=== PATIENT | female | born 1985 | race Two or more races ===

== ENCOUNTER 2019-07-01 06:27 | Emergency (ER) | payer OTHER ==
[2019-07-01 07:10] VITALS: BP 124/81; PULSE 73; TEMP 98.1; BMI 29.2
[2019-07-01] MEDS ORDERED: FAMOTIDINE 20 MG/50 ML IVPB 20 MG/50 ML MG IVPB ONE ×2 (07:38→08:28)
[2019-07-01] MEDS ORDERED: ONDANSETRON 4 MG/2 ML VIAL IVPUSH ONE (07:38)
[2019-07-01] MEDS ORDERED: SODIUM CHLORIDE 1,000 ML IV STA (08:09)
--- NOTE | 2019-07-01 08:09 | PDOC ---
History of Present Illness - General Chief Complaint: Pain Stated Complaint: ABD PAIN Time Seen by Provider: 07/01/19 07:31 History Source: Patient Exam Limitations: No Limitations - History of Present Illness Initial Comments: 07/01/19 08:04 34 yo F w/ a h/o gallstones comes in c/o exacerbation of her gallstones pain since 4am today. She c/o RUQ pain which radiates to the back. She is supposed to have a cholecystectomy done on Friday at [place] but could not take the pain, (+)nausea, no vomiting, no diarrhea, no urinary/vaginal symptoms, no fever/chills. She has not taken any pain meds. Past History - Past Medical History Allergies/Adverse Reactions: Allergies Allergy/AdvReac Type Severity Reaction Status Date / Time shellfish derived Allergy Verified 07/01/19 07:11 Home Medications: Ambulatory Orders NK [No Known Home Medication] 07/01/19 COPD: No - Suicide/Smoking/Psychosocial Hx Smoking History: Unknown if ever smoked Review of Systems - Review of Systems Able to Perform ROS?: Yes Constitutional: No: Chills, Fever, Malaise, Night Sweats HEENTM: No: Eye Pain, Recent change in vision, Throat Pain Respiratory: No: Cough, Shortness of Breath Cardiac (ROS): No: Chest Pain, Palpitations, Chest Tightness ABD/GI: Yes: Nausea, Abdominal cramping. No: Diarrhea, Vomiting : No: Dysuria, Hematuria Musculoskeletal: No: Back Pain Integumentary: No: Rash Neurological: No: Headache, Numbness, Dizziness Psychiatric: Yes: Change in Appetite Endocrine: No: Unexplained Weight Loss *Physical Exam - Vital Signs Last Vital Signs Temp Pulse Resp BP Pulse Ox 98.1 F 73 18 124/81 98 07/01/19 07:08 07/01/19 07:08 07/01/19 07:08 07/01/19 07:08 07/01/19 07:08 - Physical Exam General Appearance: Yes: Nourished. No: Apparent Distress HEENT: positive: DESEAN, Normal ENT Inspection, Normal Voice. negative: Pale Conjunctivae, Scleral Icterus (R), Scleral Icterus (L) Neck: positive: Supple. negative: Decreased range of motion, Tender midline Respiratory/Chest: positive: Lungs Clear, Normal Breath Sounds. negative: Respiratory Distress, Accessory Muscle Use Cardiovascular: positive: Regular Rhythm, Regular Rate Gastrointestinal/Abdominal: positive: Normal Bowel Sounds, Tender (RUQ tenderness with (+)ricketts's sign. NO CVA tenderness), Soft Musculoskeletal: positive: Normal Inspection. negative: CVA Tenderness, Decreased Range of Motion Extremity: positive: Normal Capillary Refill, Normal Inspection, Normal Range of Motion. negative: Tender, Pedal Edema Integumentary: positive: Normal Color, Dry. negative: Jaundice, Rash Neurologic: positive: Fully Oriented, Alert, Normal Mood/Affect ED Treatment Course - LABORATORY CBC & Chemistry Diagram: 07/01/19 08:18 07/01/19 08:18 - RADIOLOGY Radiology Studies Ordered: Category Date Time Status GALLBLADDER US [US] Stat Ultrasound 07/01/19 07:35 Ordered Medical Decision Making - Medical Decision Making 07/01/19 08:08 34 yo F w/ RUQ pain radiating to the back R/O cholecystitis/pancreatitis. WIll line and lab, give IV fluids, zofran, pepcid, do a TVS and reassess 07/01/19 09:55 Pt declines pain meds at this time, says that she feels better. 07/01/19 11:05 Pt says that she feels much better, no pain, no nausea, she asked to take the IV out. Lock removed. She understands that if she needs it again, we will have to stick her again. 07/01/19 12:15 Sono without signs of cholecystitis, pt feeling much better, asking to get discharged. She will go home and follw up with her surgeon Pt is non toxic appearing in NAD Return for worsening/concerning symptoms. Case discussed with Dr. Colon who agrees with assessment and plan *DC/Admit/Observation/Transfer Diagnosis at time of Disposition: Biliary colic - Discharge Dispostion Disposition: HOME - Referrals Referrals: Ronnie Almonte MD [Primary Care Provider] - - Patient Instructions Additional Instructions: Do NOT EAT ANYTHING GREASY/FATTY, IT MAY WORSEN YOUR PAIN. RETURN FOR WORSENING/ CONCERNING SYMPTOMS. - Post Discharge Activity
[2019-07-01] MEDS ORDERED: ONDANSETRON 4 MG/2 ML VIAL ONE (08:27)
[2019-07-01 08:48] LABS: BASO % 0.8 % (0-2.0); HEMATOCRIT 34.5 % (32.4-45.2); HEMOGLOBIN 10.8 GM/dL (10.7-15.3); LYMPH % 44.8 % (8-40); MCH 21.5 pg (25.7-33.7); MCHC 31.3 g/dl (32.0-36.0); MEAN CELL VOLUME 68.8 fl (80-96); MONO % 7.7 % (3.8-10.2); NEUT % 42.7 % (42.8-82.8); PLATELET COUNT 435 K/MM3 (134-434); RBC 5.01 M/mm3 (3.60-5.2); RDW 16.7 % (11.6-15.6); WHITE BLOOD COUNT 3.5 K/mm3 (4.0-10.0)
[2019-07-01 08:54] LABS: BILIRUBIN,TOTAL 0.3 mg/dL (0.2-1); BLOOD UREA NITROGEN 11.8 mg/dL (7-18); CALCIUM 9.2 mg/dL (8.5-10.1); CREATININE 0.6 mg/dL (0.55-1.3); MAGNESIUM 2.3 mg/dL (1.8-2.4); PHOSPHOROUS 3.7 mg/dL (2.5-4.9); POTASSIUM 4.4 mmol/L (3.5-5.1); TOT PROT 8.2 g/dl (6.4-8.2)
[2019-07-01 09:20] LABS: PH,URINE 5.5 (5.0-8.0); URINE APPEARANCE CLEAR; URINE BILIRUBIN NEGATIVE (NEGATIVE); URINE COLOR YELLOW; URINE GLUCOSE (UA) NEGATIVE (NEGATIVE); URINE KETONE NEGATIVE (NEGATIVE); URINE LEUK ESTERASE NEGATIVE (NEGATIVE); URINE NITRITE NEGATIVE (NEGATIVE); URINE PROTEIN NEGATIVE (NEGATIVE); URINE UROBILINOGEN 0.2 mg/dL (0.2-1.0)
[2019-07-01 09:23] LABS: INR 1.03 (0.83-1.09); PROTHROMBIN TIME (PATIENT) 12.1 SEC (9.7-13.0)
--- NOTE | 2019-07-01 09:34 | PDOC ---
*Physical Exam - Vital Signs Last Vital Signs Temp Pulse Resp BP Pulse Ox 98.1 F 73 18 124/81 98 07/01/19 07:08 07/01/19 07:08 07/01/19 07:08 07/01/19 07:08 07/01/19 07:08 - Physical Exam Comments: 07/01/19 09:32 vss, negative alert, dry mucosa no jaundice/pallor RUQ ttp with guarding. otherwise soft/nd. ED Treatment Course - LABORATORY CBC & Chemistry Diagram: 07/01/19 08:18 07/01/19 08:18 - ADDITIONAL ORDERS Additional order review: Laboratory Results 07/01/19 07/01/19 07/01/19 08:18 08:18 08:18 PT with INR 12.10 INR 1.03 Sodium Potassium Chloride Carbon Dioxide Anion Gap BUN Creatinine Est GFR (CKD-EPI)AfAm Est GFR (CKD-EPI)NonAf Random Glucose Calcium Phosphorus Magnesium Total Bilirubin AST ALT Alkaline Phosphatase Total Protein Albumin Lipase Beta HCG, Quant Urine Color Yellow Urine Appearance Clear Urine pH 5.5 Ur Specific Whitney 1.027 Urine Protein Negative Urine Glucose (UA) Negative Urine Ketones Negative Urine Blood Negative Urine Nitrite Negative Urine Bilirubin Negative Urine Urobilinogen 0.2 Ur Leukocyte Esterase Negative Blood Type A POSITIVE Antibody Screen Negative 07/01/19 07/01/19 08:18 08:18 PT with INR INR Sodium 140 Potassium 4.4 Chloride 108 H Carbon Dioxide 27 Anion Gap 5 L BUN 11.8 Creatinine 0.6 Est GFR (CKD-EPI)AfAm 139.78 Est GFR (CKD-EPI)NonAf 120.61 Random Glucose 91 Calcium 9.2 Phosphorus 3.7 Magnesium 2.3 Total Bilirubin 0.3 AST 14 L ALT 18 Alkaline Phosphatase 98 Total Protein 8.2 Albumin 4.0 Lipase 105 Beta HCG, Quant < 1.0 Urine Color Urine Appearance Urine pH Ur Specific Whitney Urine Protein Urine Glucose (UA) Urine Ketones Urine Blood Urine Nitrite Urine Bilirubin Urine Urobilinogen Ur Leukocyte Esterase Blood Type Antibody Screen 07/01/19 08:18 RBC 5.01 MCV 68.8 L MCHC 31.3 L RDW 16.7 H MPV 9.0 Neutrophils % 42.7 L Lymphocytes % 44.8 H Monocytes % 7.7 Eosinophils % 4.0 Basophils % 0.8 - Medications Given in the ED: ED Medications Discontinued Medications Generic Name Dose Route Start Last Admin Trade Name Catarina PRN Reason Stop Dose Admin Famotidine/Sodium Chloride 20 mg in 50 mls @ 100 mls/hr 07/01/19 07:38 08:42 Pepcid 20 Mg Premixed Ivpb - IVPB 07/01/19 08:07 100 mls/hr ONCE ONE Administration Sodium Chloride 1,000 mls @ 1,000 mls/hr 07/01/19 08:09 07/01/19 08:42 Normal Saline - IV 07/01/19 09:08 1,000 mls/hr ASDIR STA Administration Ondansetron HCl 4 mg 07/01/19 07:38 07/01/19 08:42 Zofran Injection IVPUSH 07/01/19 07:39 4 mg ONCE ONE Administration Medical Decision Making - Medical Decision Making 07/01/19 09:32 Patient seen and evaluated with the nurse practitioner. I agree with the overall evaluation, assessment, and management with the following summary of visit: 34-year-old female with history of known cholelithiasis scheduled for elective surgery next week at [place] presents now with acute exacerbation of her biliary colic since last night. Afebrile and not septic appearing Tenderness in the right upper quadrant 34-year-old female with known cholelithiasis presents with biliary colic, rule out cholecystitis or obstructive pathology. Labs, urinalysis Right upper quadrant ultrasound Pain control Reassess. If symptoms persist or evidence of obstruction or infection, consider transfer to her surgeon at [place] or admission for care here per patient preference. *DC/Admit/Observation/Transfer Diagnosis at time of Disposition: Biliary colic - Referrals Referrals: Ronnie Almonte MD [Primary Care Provider] - - Patient Instructions - Post Discharge Activity
[2019-07-01 11:15] LABS: ANISOCYTOSIS 2+; MACROCYTOSIS 0; OVALOCYTE 1+; PLATELET ESTIMATE NORMAL
== END 2019-07-01 12:40 | disposition home or self-care (01) ==
LOC: JER 06:27
PROC: 3E033GC Introduction of Other Therapeutic Substance into Peripheral Vein, Percutaneous Approach (ICD-10-PCS; principal; 2019-07-01)
PROC: 3E0337Z Introduction of Electrolytic and Water Balance Substance into Peripheral Vein, Percutaneous Approach (ICD-10-PCS; 2019-07-01)
DX: K80.50 Calculus of bile duct without cholangitis or cholecystitis without obstruction (principal)
CPT/HCPCS: 36415; 76705-TC; 80053; 81003; 83690; 83735; 84100; 84702; 85025; 85610; 86850; 86900; 86901; 87086; 99283-25; J7030

== ENCOUNTER 2019-07-02 03:36 | Emergency (ER) | payer OTHER ==
[2019-07-02 03:53] VITALS: TEMP 98.2; BMI 29.3
--- NOTE | 2019-07-02 04:03 | PDOC ---
History of Present Illness - General Chief Complaint: Pain Stated Complaint: PAIN Time Seen by Provider: 07/02/19 03:55 - History of Present Illness Initial Comments: 07/02/19 04:11 34 year woman with a history of gallstones, scheduled for cholecystectomy on Friday at [facility]. She has had this pain for 3 months and was diagnosed with cholelithiasis on 06/14/19 at [facility]. She was seen in the ED yesterday, had negative labs and US and she was discharged with Naproxen and Tylenol. She reports that she took 2 Naproxen Past History - Past Medical History Allergies/Adverse Reactions: Allergies Allergy/AdvReac Type Severity Reaction Status Date / Time shellfish derived Allergy Verified 07/01/19 07:11 Home Medications: Ambulatory Orders Naproxen [Naprosyn -] 500 mg PO BID #28 tablet 07/02/19 COPD: No - Suicide/Smoking/Psychosocial Hx Smoking History: Never smoked Have you smoked in the past 12 months: No Information on smoking cessation initiated: No Hx Alcohol Use: No Drug/Substance Use Hx: No *Physical Exam - Vital Signs Last Vital Signs Temp Pulse Resp BP Pulse Ox 98.2 F 81 20 140/91 99 07/02/19 03:46 07/02/19 03:46 07/02/19 03:46 07/02/19 03:46 07/02/19 03:46 ED Treatment Course - LABORATORY CBC & Chemistry Diagram: 07/02/19 04:55 07/02/19 04:55 *DC/Admit/Observation/Transfer Diagnosis at time of Disposition: Biliary colic - Discharge Dispostion Disposition: HOME Condition at time of disposition: Stable Decision to Admit order: No - Prescriptions Prescriptions: Naproxen [Naprosyn -] 500 mg PO BID #28 tablet - Referrals - Patient Instructions Printed Discharge Instructions: DI for Gallstones Additional Instructions: You were seen in the ED for complaints of abdominal pain that is the same as your gallstone pain Your labwork was unremarkable and you got pain medications Please follow up with you Primary Doctor within 1 week. Take the pain medication that has been prescribed to her pharmacy Return to the ED if you experience worsening abdominal pain, nausea, vomiting, fever - Post Discharge Activity
[2019-07-02] MEDS: SODIUM CHLORIDE 1,000 ML IV SCH ×2 (04:17→04:57)
[2019-07-02] MEDS ORDERED: ONDANSETRON *ODT* 4 MG TABLET SL ONE (04:41)
[2019-07-02 05:10] LABS: BASO % 1.2 % (0-2.0); EOS % 3.3 % (0-4.5); HEMATOCRIT 34.4 % (32.4-45.2); HEMOGLOBIN 10.7 GM/dL (10.7-15.3); LYMPH % 38.6 % (8-40); MCH 21.5 pg (25.7-33.7); MCHC 31.1 g/dl (32.0-36.0); MEAN CELL VOLUME 69.1 fl (80-96); MEAN PLT VOLUME 8.8 fl (7.5-11.1); MONO % 6.5 % (3.8-10.2); NEUT % 50.4 % (42.8-82.8); PLATELET COUNT 433 K/MM3 (134-434); RBC 4.97 M/mm3 (3.60-5.2); RDW 16.9 % (11.6-15.6); WHITE BLOOD COUNT 4.7 K/mm3 (4.0-10.0)
[2019-07-02 05:27] LABS: ALBUMIN 4.1 g/dl (3.4-5.0); BILIRUBIN,TOTAL 0.2 mg/dL (0.2-1); BLOOD UREA NITROGEN 10.4 mg/dL (7-18); CALCIUM 9.1 mg/dL (8.5-10.1); CREATININE 0.7 mg/dL (0.55-1.3); POTASSIUM 4.1 mmol/L (3.5-5.1); TOT PROT 8.2 g/dl (6.4-8.2)
[2019-07-02] MEDS ORDERED: ONDANSETRON *ODT* 4 MG TABLET ONE (05:33)
--- NOTE | 2019-07-02 05:56 | PDOC ---
Attending Attestation - Resident Resident Name: EdnamagdiClau - ED Attending Attestation I have performed the following: I have examined & evaluated the patient, The case was reviewed & discussed with the resident, I agree w/resident's findings & plan, Exceptions are as noted - HPI HPI: 07/02/19 05:51 34 F presenting with RUQ pain. Pt was diagnosed with cholelithiasis recently and is scheduled for cholecystectomy next Friday. Pt was prescribed tylenol and naproxen for pain but has only been taking tylenol. Pt denies F/C. Endorses nausea without vomiting. Denies diarrhea. Denies lower abdominal pain. No flank pain. Pt states the pain is exactly the same as the pain she has been having. However, she does not want to have her surgery earlier, as she has a 6 month old at home that she needs to take care of. - Physicial Exam PE: 07/02/19 05:56 "GENERAL: Awake, alert, and fully oriented, in no acute distress. HEAD: No signs of trauma EYES: PERRLA, EOMI, sclera anicteric, conjunctiva clear ENT: Auricles normal inspection, hearing grossly normal, nares patent, oropharynx clear without exudates. Moist mucosa NECK: Nontender, no stepoffs, Normal ROM, supple, no lymphadenopathy, JVD, or masses LUNGS: Breath sounds equal, clear to auscultation bilaterally. No wheezes, and no crackles HEART: Regular rate and rhythm, normal S1 and S2, no murmurs, rubs or gallops ABDOMEN: + RUQ TTP, normoactive bowel sounds. No guarding, no rebound. No masses EXTREMITIES: Normal range of motion, no edema. No clubbing or cyanosis. No cords, erythema, or tenderness NEUROLOGICAL: Cranial nerves II through XII intact. 5/5 strength and sensation in all extremities, Normal speech, normal gait, normal cerebellar function SKIN: Warm, Dry, normal turgor, no rashes or lesions noted. - Medical Decision Making 07/02/19 05:57 34 F with RUQ pain. Known gallstones. Pt was seen here yesterday and had labs and US that was negative for cholecystitis. - Repeat labs - Pain control 07/02/19 06:02 Labs wnl Pt reassessed after pain meds, now feels much better. Tolerating PO with minimal pain Pt is well appearing, with normal vitals. Clinically stable for DC at this time. I discussed the physical exam findings, ancillary test results and final diagnoses with the patient. I answered all of the patient's questions. The patient was satisfied with the care received and felt comfortable with the discharge plan and treatment plan. The patient agrees to follow up with the primary care physician within 24-72 hours.
[2019-07-02 06:24] VITALS: BP 130/90; PULSE 90
== END 2019-07-02 06:24 | disposition home or self-care (01) ==
LOC: JER 03:36
DX: N12 Tubulo-interstitial nephritis, not specified as acute or chronic (principal)
CPT/HCPCS: 36415; 80053; 85025; 99282-25; J7030; Q0162

== ENCOUNTER 2020-12-11 20:48 | Emergency (ER) | payer OTHER ==
[2020-12-11 21:46] VITALS: BP 128/75; PULSE 86; TEMP 98.2; BMI 30.7
[2020-12-11] MEDS ORDERED: LIDOCAINE PATCH REMOVAL MC SCH (22:00)
[2020-12-11] MEDS ORDERED: KETOROLAC TROMETHAMINE 30 MG/1 ML VIAL IM ONE (22:53)
[2020-12-11] MEDS ORDERED: LIDOCAINE 5% TOPICAL PATCH TP ONE (22:53)
[2020-12-11] MEDS ORDERED: LIDOCAINE 5% TOPICAL PATCH ONE ×2 (22:58→22:59)
[2020-12-11] MEDS ORDERED: KETOROLAC TROMETHAMINE 30 MG/1 ML VIAL ONE (22:58)
== END 2020-12-11 23:08 | disposition home or self-care (01) ==
LOC: JER 20:48
PROC: 3E0233Z Introduction of Anti-inflammatory into Muscle, Percutaneous Approach (ICD-10-PCS; principal; 2020-12-11)
DX: M54.5 Low back pain (principal)
CPT/HCPCS: 99284-25

== ENCOUNTER 2021-02-12 12:52 | Emergency (ER) | payer OTHER ==
[2021-02-12 13:03] VITALS: BP 125/86; PULSE 87; TEMP 98.2; BMI 31.2
[2021-02-12 15:01] LABS: EOS % 1.6 % (0-4.5); HEMATOCRIT 36.6 % (32.4-45.2); HEMOGLOBIN 11.6 GM/dL (10.7-15.3); LYMPH % 41.7 % (8-40); MCH 24.1 pg (25.7-33.7); MCHC 31.8 g/dl (32.0-36.0); MEAN CELL VOLUME 75.9 fl (80-96); MEAN PLT VOLUME 9.2 fl (7.5-11.1); MONO % 10.4 % (3.8-10.2); NEUT % 45.3 % (42.8-82.8); PLATELET COUNT 323 K/MM3 (134-434); RBC 4.82 M/mm3 (3.60-5.2); RDW 14.3 % (11.6-15.6); WHITE BLOOD COUNT 5.6 K/mm3 (4.0-10.0)
[2021-02-12 15:14] LABS: INR 1.1 (0.83-1.09); PROTHROMBIN TIME (PATIENT) 13.5 SEC (9.7-13.0)
[2021-02-12 15:16] LABS: ACTIVATED PTT 28.8 SECONDS (25.2-36.5)
[2021-02-12 15:24] LABS: CHLORIDE 105 mmol/L (98-107); SODIUM 136 mmol/L (136-145)
[2021-02-12 15:26] LABS: CALCIUM 9.1 mg/dL (8.5-10.1)
[2021-02-12 15:27] LABS: ALBUMIN 4.1 g/dl (3.4-5.0); ANION GAP 6 MMOL/L (8-16); BLOOD UREA NITROGEN 9.2 mg/dL (7-18); CO2 25 mmol/L (21-32); GLUCOSE,RANDOM 77 mg/dL (74-106); MAGNESIUM 2.2 mg/dL (1.8-2.4)
[2021-02-12 15:30] LABS: CREATININE 0.7 mg/dL (0.55-1.3); SGOT/AST 19 U/L (15-37); SGPT/ALT 38 U/L (13-61)
[2021-02-12 15:31] LABS: BILIRUBIN,TOTAL 0.4 mg/dL (0.2-1); TOT PROT 8.4 g/dl (6.4-8.2)
[2021-02-12 15:33] LABS: ALK PHOS 98 U/L (45-117)
== END 2021-02-12 17:45 | disposition home or self-care (01) ==
LOC: JER 12:52
DX: R07.89 Other chest pain (principal)
CPT/HCPCS: 36415; 71046-TC-FY; 80053; 82550; 83735; 84484; 85025; 85610; 85730; 87880; 93005; 93010; 99284-25

== ENCOUNTER 2021-03-05 21:06 | Emergency (ER) | payer OTHER ==
[2021-03-05 21:23] VITALS: TEMP 98.2; BMI 30.4
[2021-03-05 22:19] LABS: BASO % 0.5 % (0-2.0); EOS % 2.8 % (0-4.5); HEMOGLOBIN 11.4 GM/dL (10.7-15.3); LYMPH % 27.8 % (8-40); MCH 24.4 pg (25.7-33.7); MCHC 32.6 g/dl (32.0-36.0); MEAN CELL VOLUME 74.8 fl (80-96); MEAN PLT VOLUME 9.1 fl (7.5-11.1); MONO % 5.8 % (3.8-10.2); NEUT % 63.1 % (42.8-82.8); PLATELET COUNT 315 K/MM3 (134-434); RBC 4.68 M/mm3 (3.60-5.2); RDW 16.3 % (11.6-15.6); WHITE BLOOD COUNT 6.2 K/mm3 (4.0-10.0)
[2021-03-05 23:09] LABS: URINE APPEARANCE CLEAR; URINE BILIRUBIN NEGATIVE (NEGATIVE); URINE COLOR YELLOW; URINE GLUCOSE (UA) NEGATIVE (NEGATIVE); URINE KETONE NEGATIVE (NEGATIVE); URINE LEUK ESTERASE NEGATIVE (NEGATIVE); URINE NITRITE NEGATIVE (NEGATIVE); URINE PROTEIN NEGATIVE (NEGATIVE); URINE UROBILINOGEN 0.2 mg/dL (0.2-1.0)
[2021-03-05 23:48] VITALS: BP 120/77; PULSE 84
== END 2021-03-05 23:47 | disposition home or self-care (01) ==
LOC: JER 21:06
DX: O26.851 Spotting complicating pregnancy, first trimester (principal); Z3A.01 Less than 8 weeks gestation of pregnancy
CPT/HCPCS: 36415; 76801-TC; 81003; 84702; 85025; 87086; 99284-25

== ENCOUNTER 2021-06-25 17:57 | Emergency (ER) | payer OTHER ==
[2021-06-25 18:07] VITALS: BMI 33.9
[2021-06-25] MEDS ORDERED: SODIUM CHLORIDE 0.9% 500 ML INFUS.BAG IV ONE (18:22)
[2021-06-25] MEDS ORDERED: ACETAMINOPHEN 1000 MG/100 ML VIAL (NON FORMULARY) IVPB ONE (18:22)
[2021-06-25] MEDS ORDERED: ACETAMINOPHEN INJECTION 100 ML IVPB ONE (18:27)
[2021-06-25 18:45] LABS: BASO % 0.2 % (0-2.0); EOS % 0.4 % (0-4.5); HEMATOCRIT 33.2 % (32.4-45.2); HEMOGLOBIN 10.8 GM/dL (10.7-15.3); LYMPH % 32.4 % (8-40); MCH 23.6 pg (25.7-33.7); MCHC 32.5 g/dl (32.0-36.0); MEAN CELL VOLUME 72.5 fl (80-96); MEAN PLT VOLUME 8.6 fl (7.5-11.1); MONO % 8.7 % (3.8-10.2); NEUT % 58.3 % (42.8-82.8); PLATELET COUNT 290 10^3/uL (134-434); RBC 4.58 M/mm3 (3.60-5.2); RDW 14.9 % (11.6-15.6); WHITE BLOOD COUNT 3.5 K/mm3 (4.0-10.0)
[2021-06-25 18:49] LABS: VENOUS BASE EXCESS -0.6 mmol/L (-2-2); VENOUS O2 SATURATION 64.8 % (70-80); VENOUS PCO2 42.8 mmHg (38-52); VENOUS PH 7.378 (7.310-7.410)
[2021-06-25 18:52] LABS: INR 0.97 (0.83-1.09)
[2021-06-25 18:54] LABS: ACTIVATED PTT 29.8 SECONDS (25.2-36.5)
[2021-06-25 19:05] LABS: CHLORIDE 104 mmol/L (98-107); SODIUM 137 mmol/L (136-145)
[2021-06-25 19:08] LABS: ALBUMIN 2.8 g/dl (3.4-5.0); ANION GAP 7 MMOL/L (8-16); BLOOD UREA NITROGEN 5.1 mg/dL (7-18); CALCIUM 8.1 mg/dL (8.5-10.1); CO2 25 mmol/L (21-32); GLUCOSE,RANDOM 102 mg/dL (74-106)
[2021-06-25 19:11] LABS: BILIRUBIN,DIRECT 0.1 mg/dL (0.0-0.2); CREATININE 0.5 mg/dL (0.55-1.3); SGOT/AST 23 U/L (15-37); SGPT/ALT 30 U/L (13-61)
[2021-06-25 19:13] LABS: BILIRUBIN,TOTAL 0.3 mg/dL (0.2-1); TOT PROT 7.6 g/dl (6.4-8.2)
[2021-06-25 19:14] LABS: ALK PHOS 175 U/L (45-117)
[2021-06-25 20:18] LABS: LDH 163 U/L (84-246)
[2021-06-26 01:45] VITALS: BP 111/77; PULSE 78
[2021-06-26 02:01] VITALS: TEMP 98.5
[2021-06-26 02:31] LABS: PH,URINE 6.5 (5.0-8.0); URINE APPEARANCE CLEAR; URINE BILIRUBIN NEGATIVE (NEGATIVE); URINE COLOR YELLOW; URINE GLUCOSE (UA) NEGATIVE (NEGATIVE); URINE KETONE NEGATIVE (NEGATIVE); URINE LEUK ESTERASE NEGATIVE (NEGATIVE); URINE NITRITE NEGATIVE (NEGATIVE); URINE PROTEIN NEGATIVE (NEGATIVE)
== END 2021-06-26 01:45 | disposition short-term general hospital (02) ==
LOC: JER 17:57
PROC: 3E033NZ Introduction of Analgesics, Hypnotics, Sedatives into Peripheral Vein, Percutaneous Approach (ICD-10-PCS; principal; 2021-06-25)
DX: O98.512 Other viral diseases complicating pregnancy, second trimester (principal); U07.1 COVID-19; R07.9 Chest pain, unspecified; R06.02 Shortness of breath
CPT/HCPCS: 36415; 71045-TC-FY; 71275-TC; 80053; 81003; 82248; 82550; 82728; 82803; 83605; 83615; 84484; 85025; 85610; 85730; 86140; 87040; 87086; 87804; 93005; 93010; 96374; 99284-25; C9803; J0131; Q9967; U0003; U0005

== ENCOUNTER 2022-02-23 20:45 | Emergency (ER) | payer OTHER ==
[2022-02-23 21:06] VITALS: BP 138/87; PULSE 87; TEMP 97.6; BMI 32.4
== END 2022-02-24 00:14 | disposition home or self-care (01) ==
LOC: JER 20:45
DX: G44.209 Tension-type headache, unspecified, not intractable (principal)
CPT/HCPCS: 93005; 93010; 99283-25

== ENCOUNTER 2022-06-07 04:07 | Emergency (ER) | payer OTHER ==
[2022-06-07 04:45] VITALS: BP 117/77; PULSE 71; RESP 20; TEMP 97.5; BMI 31.7
[2022-06-07] MEDS ORDERED: METOCLOPRAMIDE HCL 10 MG TABLET (FP) PO ONE ×2 (04:52→05:21)
[2022-06-07] MEDS ORDERED: FAMOTIDINE 20 MG TABLET PO ONE (04:54)
[2022-06-07] MEDS ORDERED: MAG HYDROX/AL HYDROX/SIMETH -MYLANTA- ORAL SUSPENSION PO ONE (04:54)
[2022-06-07] MEDS ORDERED: FAMOTIDINE 20 MG TABLET ONE (05:21)
[2022-06-07] MEDS ORDERED: MAG HYDROX/AL HYDROX/SIMETH 30 ML UNIT-DOSE CUP ONE (05:21)
[2022-06-07 06:36] LABS: URINE APPEARANCE CLEAR; URINE BILIRUBIN NEGATIVE (NEGATIVE); URINE COLOR YELLOW; URINE GLUCOSE (UA) NEGATIVE (NEGATIVE); URINE KETONE NEGATIVE (NEGATIVE); URINE LEUK ESTERASE NEGATIVE (NEGATIVE); URINE NITRITE NEGATIVE (NEGATIVE); URINE PROTEIN NEGATIVE (NEGATIVE); URINE UROBILINOGEN 0.2 mg/dL (0.2-1.0)
[2022-06-07] MEDS ORDERED: LIDOCAINE 5% TOPICAL PATCH TP ONE (06:40)
[2022-06-07] MEDS ORDERED: LIDOCAINE 5% TOPICAL PATCH ONE (06:43)
[2022-06-07] MEDS ORDERED: LIDOCAINE PATCH REMOVAL MC SCH (22:00)
== END 2022-06-07 06:48 | disposition home or self-care (01) ==
LOC: JER 04:07
DX: M54.9 Dorsalgia, unspecified (principal)
CPT/HCPCS: 81003; 84703; 87086; 99283-25

== ENCOUNTER 2023-01-27 23:13 | Emergency (ER) | payer OTHER ==
[2023-01-27 23:34] VITALS: BP 126/77; PULSE 93; RESP 18; TEMP 97.7; BMI 30.9
[2023-01-28] MEDS ORDERED: ACETAMINOPHEN 500 MG TABLET (FP) PO ONE (02:57)
[2023-01-28] MEDS ORDERED: ACETAMINOPHEN 325 MG TABLET (FP) ONE (03:01)
== END 2023-01-28 03:28 | disposition left against medical advice (07) ==
LOC: JER 23:13
DX: R10.31 Right lower quadrant pain (principal); N93.9 Abnormal uterine and vaginal bleeding, unspecified
CPT/HCPCS: 99282-25